=== PATIENT | female | born 1985 | race Caucasian/White ===

== ENCOUNTER 2017-01-12 07:30 | Inpatient (IN) | payer OTHER ==
[2017-01-12] VITALS (13 sets, daily range): BP systolic 100–127; BP diastolic 57–84
[~2017-01-12] VITALS: Ht 172.7 cm; Wt 77.3 kg
[~2017-01-12 07:30] MED LIST: CARAFATE1 GM PO; Motrin PO; OMEPRAZOLE40 M1 PO; PRENATAL 1 PLU1 EACH PO; PRENATAL TABLE1 EAC3 PO; Vicodin,Lortab 5/500 PO
[2017-01-12 12:02] LABS: EOSINOPHIL (%) 0.3 % (0-5); HEMATOCRIT 37.1 % (36.0-46.0); IMMATURE GRANULOCYTE (%) 1.1 % (0.0-0.7); IMMATURE GRANULOCYTE COUNT 0.1 K/uL; INSTRUMENT ABS NEUTROPHIL CT 9.2 K/uL; LYMPHOCYTE COUNT 1.2 K/uL (1.0-2.8); MCH 31.1 PG (29.0-34.0); MCHC 33.2 G/DL (30.0-36.0); MCV 93.9 FL (83-99); MEAN PLAT.VOLUME 11.4 uM^3 (9.5-12.4); MONOCYTE (%) 7.5 % (3-12); MONOCYTE COUNT 0.9 K/uL (0-0.8); NEUTROPHIL (%) 80.4 % (45-76); NEUTROPHIL COUNT 9.2 K/uL (1.8-6.4); PLATELET COUNT 146 K/uL (156-360); RBC DIS.WIDTH-CV 13.4 % (11.8-14.6); RBC DIS.WIDTH-SD 46.3 % (39-53); RED BLOOD COUNT 3.95 M/uL (3.80-5.20); WHITE BLOOD COUNT 11.4 K/uL (4.1-10.2)
[2017-01-13 07:21] VITALS: BP 110/72
[2017-01-13 07:49] LABS: BASOPHIL COUNT 0.1 K/uL (0-0.1); EOSINOPHIL (%) 1.7 % (0-5); EOSINOPHIL COUNT 0.3 K/uL (0-0.3); HEMATOCRIT 33.9 % (36.0-46.0); IMMATURE GRANULOCYTE (%) 0.6 % (0.0-0.7); IMMATURE GRANULOCYTE COUNT 0.1 K/uL; INSTRUMENT ABS NEUTROPHIL CT 11.2 K/uL; LYMPHOCYTE COUNT 2.5 K/uL (1.0-2.8); MCH 32.1 PG (29.0-34.0); MCHC 34.2 G/DL (30.0-36.0); MCV 93.9 FL (83-99); MEAN PLAT.VOLUME 11.6 uM^3 (9.5-12.4); MONOCYTE (%) 8.6 % (3-12); MONOCYTE COUNT 1.3 K/uL (0-0.8); NEUTROPHIL (%) 72.9 % (45-76); NEUTROPHIL COUNT 11.2 K/uL (1.8-6.4); PLATELET COUNT 145 K/uL (156-360); RBC DIS.WIDTH-CV 13.4 % (11.8-14.6); RBC DIS.WIDTH-SD 46.4 % (39-53); RED BLOOD COUNT 3.61 M/uL (3.80-5.20); WHITE BLOOD COUNT 15.4 K/uL (4.1-10.2)
[2017-01-13] MEDS ORDERED: IBUPROFEN800 MG PO (09:42)
== END 2017-01-13 16:11 | disposition home or self-care (01) | DRG 775 ==
LOC: LDRP-OP → 2WEST 07:31 → LDRP-OP 09:19 → 2WEST 12:00 → LDRP-OP 02-18 13:06
PROVIDERS: Advanced Practice Midwife
DX: O99.62 Diseases of the digestive system complicating childbirth (principal); E04.2 Nontoxic multinodular goiter; K21.9 Gastro-esophageal reflux disease without esophagitis; Z37.0 Single live birth; Z3A.39 39 weeks gestation of pregnancy; O09.893 Supervision of other high risk pregnancies, third trimester
CPT/HCPCS: 85025; J7120

== ENCOUNTER 2017-04-15 10:06 | Day surgery (SDC) | payer OTHER ==
[~2017-04-15] VITALS: Ht 172.7 cm; Wt 68.0 kg
[~2017-04-15 10:06] MED LIST changes: +IBUPROFEN800 MG PO; +MOTRIN800 MG PO
[2017-04-15 10:43] VITALS: BP 135/79
[2017-04-15] MEDS ORDERED: ENDOCET 5-3251 EACH PO (12:48)
[2017-04-15 14:02] VITALS: BP 140/89
[2017-04-15 14:47] VITALS: BP 134/92
== END 2017-04-15 14:56 | disposition home or self-care (01) ==
LOC: SDC 10:06
PROC: 0U574ZZ Destruction of Bilateral Fallopian Tubes, Percutaneous Endoscopic Approach (ICD-10-PCS; principal; 2017-04-15)
DX: Z30.2 Encounter for sterilization (principal); K21.0 Gastro-esophageal reflux disease with esophagitis; Z88.2 Allergy status to sulfonamides
CPT/HCPCS: J0131; J0330; J1100; J1170; J1885; J2250; J2405; J3010; Q0175; S0020